=== PATIENT | female | born 1965 | race Caucasian/White ===

== ENCOUNTER 2024-05-27 17:42 | Emergency (ER) | payer OTHER ==
[~2024-05-27] VITALS: Ht 167.6 cm; Wt 68.2 kg
[2024-05-27 17:51] VITALS: BP 137/76; PULSE 83; TEMP 98; O2SAT 98
[2024-05-27] MEDS: LIDOcaine 1% W/epiNEPHrine 1:100,000 20ml vial SQ STA (19:32)
[2024-05-27 23:01] VITALS: RESP 18
== END 2024-05-27 23:02 | disposition home or self-care (01) ==
LOC: ER 17:43
DX: S71.112A Laceration without foreign body, left thigh, initial encounter (principal); S81.811A Laceration without foreign body, right lower leg, initial encounter; W54.0XXA Bitten by dog, initial encounter; Y93.89 Activity, other specified; Y92.89 Other specified places as the place of occurrence of the external cause; Y99.8 Other external cause status
CPT/HCPCS: 12005; 99283; A6449